=== PATIENT | female | born 1995 | race Caucasian/White ===

== ENCOUNTER 2020-12-01 05:37 | Outpatient (CLI) | payer OTHER ==
[~2020-12-01 05:37] MED LIST: COLACE 100MG C100 MG PO; FERROUS SULFAT325 M2 PO; IBUPROFEN600 MG PO; MACROBID 100 M100 MG PO; PRENATAL TABLE1 EAC2 PO; PYRIDIUM200 MG PO; SERTRALINE HCL50 MG PO
== END 2020-12-01 07:59 | disposition home or self-care (01) ==
LOC: GENOP 05:37
DX: O99.891 Other specified diseases and conditions complicating pregnancy (principal); R42 Dizziness and giddiness; Z3A.35 35 weeks gestation of pregnancy
CPT/HCPCS: 81001; 83518; 93005; 96365; J7120

== ENCOUNTER 2020-12-12 09:39 | Outpatient (CLI) | payer OTHER | END 2020-12-12 11:16 | disposition home or self-care (01) | LOC: GENOP 09:39 | DX: O99.891 Other specified diseases and conditions complicating pregnancy (principal); M54.9 Dorsalgia, unspecified; R25.2 Cramp and spasm; Z3A.36 36 weeks gestation of pregnancy | CPT/HCPCS: 81001; G0463 ==

== ENCOUNTER 2020-12-21 23:19 | Outpatient (CLI) | payer OTHER | END 2020-12-22 01:49 | disposition home or self-care (01) | LOC: GENOP 23:19 | DX: O42.92 Full-term premature rupture of membranes, unspecified as to length of time between rupture and onset of labor (principal); O26.893 Other specified pregnancy related conditions, third trimester; R10.9 Unspecified abdominal pain; Z3A.37 37 weeks gestation of pregnancy | CPT/HCPCS: 81001; 83518; G0463 ==

== ENCOUNTER → 2020-12-26 | Outpatient (CLI) | payer OTHER ==
[~2020-12-26] MED LIST changes: +DOCUSATE SODIU100 MG PO; +HYDROCODON-ACE1 EAC4 PO; +PRENATAL VITAM1 EAC3 PO; +ZOLOFT100 MG PO
== END ==
LOC: GENOP 07:34
DX: O41.8X90 Other specified disorders of amniotic fluid and membranes, unspecified trimester, not applicable or unspecified (principal)
CPT/HCPCS: 81001; 83518; G0463

== ENCOUNTER → 2020-12-30 | Outpatient (CLI) | payer OTHER | LOC: GENOP 02:57 | DX: Z53.8 Procedure and treatment not carried out for other reasons (principal) | CPT/HCPCS: G0463 ==

== ENCOUNTER 2020-12-31 05:19 | Inpatient (IN) | payer OTHER ==
[~2020-12-31] VITALS: Ht 165.1 cm; Wt 108.9 kg
[~2020-12-31 05:19] MED LIST changes: -DOCUSATE SODIU100 MG PO; -HYDROCODON-ACE1 EAC4 PO; -PRENATAL VITAM1 EAC3 PO; -ZOLOFT100 MG PO
[2020-12-31 05:48] LABS: HEMOGLOBIN 12.4 gm/dl (12.3-15.3); RED BLOOD COUNT 4.36 M/UL (4.00-5.10); WHITE BLOOD COUNT 8.8 K/UL (4.5-11.0)
[2020-12-31] MEDS ORDERED: PRENATAL VITAM1 EAC3 PO (07:06)
[2020-12-31] MEDS ORDERED: ZOLOFT100 MG PO (07:07)
[2020-12-31] MEDS ORDERED: HYDROCODON-ACE1 EAC4 PO (12:10)
[2020-12-31] MEDS ORDERED: DOCUSATE SODIU100 MG PO (12:10)
[2020-12-31] MEDS ORDERED: IBUPROFEN600 MG PO (12:10)
[2021-01-01 05:03] LABS: HEMOGLOBIN 9.9 gm/dl (12.3-15.3)
== END 2021-01-01 14:58 | disposition home or self-care (01) | DRG 806 ==
LOC: OB 05:19
PROVIDERS: Obstetrics & Gynecology; ADMIT Obstetrics & Gynecology
PROC: 10E0XZZ Delivery of Products of Conception, External Approach (ICD-10-PCS; principal; 2020-12-31)
PROC: 0KQM0ZZ Repair Perineum Muscle, Open Approach (ICD-10-PCS; 2020-12-31)
DX: O69.81X0 Labor and delivery complicated by cord around neck, without compression, not applicable or unspecified (principal); O98.32 Other infections with a predominantly sexual mode of transmission complicating childbirth; Z37.0 Single live birth; Z3A.39 39 weeks gestation of pregnancy; O70.1 Second degree perineal laceration during delivery; O75.89 Other specified complications of labor and delivery; N89.8 Other specified noninflammatory disorders of vagina; O99.344 Other mental disorders complicating childbirth; F32.9 Major depressive disorder, single episode, unspecified; F41.1 Generalized anxiety disorder; M51.36 Other intervertebral disc degeneration, lumbar region; A56.8 Sexually transmitted chlamydial infection of other sites; Z88.2 Allergy status to sulfonamides; Z91.040 Latex allergy status; Z82.49 Family history of ischemic heart disease and other diseases of the circulatory system; Z83.3 Family history of diabetes mellitus; Z28.21 Immunization not carried out because of patient refusal
CPT/HCPCS: 36415; 51702; 82800; 85014; 85018; 85025; G0463; J2210; J7120

== ENCOUNTER → 2021-06-10 | Outpatient (CLI) | payer OTHER ==
[~2021-06-10] MED LIST changes: +DOCUSATE SODIU100 MG PO; +HYDROCODON-ACE1 EAC4 PO; +PRENATAL VITAM1 EAC3 PO; +ZOLOFT100 MG PO
== END ==
LOC: LAB 11:48
DX: Z32.00 Encounter for pregnancy test, result unknown (principal)
CPT/HCPCS: 36415; 84702

== ENCOUNTER 2021-06-20 07:16 | Emergency (ER) | payer OTHER ==
[2021-06-20 08:03] LABS: RED BLOOD COUNT 5.07 M/UL (4.00-5.10); WHITE BLOOD COUNT 5.5 K/UL (4.5-11.0)
== END 2021-06-20 10:36 | disposition home or self-care (01) ==
LOC: ER1 07:16
PROVIDERS: Physician Assistant
DX: N93.8 Other specified abnormal uterine and vaginal bleeding (principal); Z88.2 Allergy status to sulfonamides
CPT/HCPCS: 81001; 84703; 85025; 87077; 87086; 99284

== ENCOUNTER 2022-06-18 19:20 | Emergency (ER) | payer OTHER ==
[2022-06-18 20:31] LABS: HEMOGLOBIN 14.9 gm/dl (12.3-15.3); RED BLOOD COUNT 4.74 M/UL (4.00-5.10); WHITE BLOOD COUNT 9.2 K/UL (4.5-11.0)
[2022-06-18 20:51] LABS: BUN/CREATININE RATIO 10 (0-10)
[2022-06-18] MEDS ORDERED: DIFLUCAN150 MG PO (23:27)
[2022-06-18] MEDS ORDERED: OMNICEF 300 MG300 MG PO (23:27)
[2022-06-21 05:12] LABS: CHLAMYDIA TRACHOMATIS, NAA Negative (Negative); NEISSERIA GONORRHOEAE, NAA Negative (Negative)
== END 2022-06-19 00:41 | disposition home or self-care (01) ==
LOC: ER1 19:20
PROVIDERS: Physician Assistant
DX: B37.3 Candidiasis of vulva and vagina (principal); N39.0 Urinary tract infection, site not specified; Z88.2 Allergy status to sulfonamides; Z20.822 Contact with and (suspected) exposure to COVID-19
CPT/HCPCS: 0240U; 80053; 81001; 83690; 84703; 85025; 87086; 87210; 96372; 99284; J0696

== ENCOUNTER → 2022-07-19 | Outpatient (CLI) | payer OTHER ==
[~2022-07-19] MED LIST changes: +DIFLUCAN150 MG PO; +OMNICEF 300 MG300 MG PO
== END ==
LOC: LAB 14:56
DX: Z32.01 Encounter for pregnancy test, result positive (principal)
CPT/HCPCS: 36415; 84702; 84703